=== PATIENT | female | born 1995 | race African-American/Black ===

== ENCOUNTER 2017-01-30 18:14 | Emergency (ER) | payer MEDICAID, OTHER ==
[~2017-01-30] VITALS: Ht 157.5 cm; Wt 53.7 kg
[2017-01-30 23:07] LABS: CLARITY URINE CLOUDY (CLEAR); COLOR URINE YELLOW (YELLOW); GLUCOSE URINE NEGATIVE (NEGATIVE); KETONES URINE 2+ (NEGATIVE); LEUKOCYTE ESTERASE URINE NEGATIVE (NEGATIVE); NITRITE URINE NEGATIVE (NEGATIVE); OCCULT BLOOD URINE NEGATIVE (NEGATIVE); PH URINE 7.5 (4.5-8.0); PROTEIN URINE NEGATIVE (NEGATIVE); SPECIFIC GRAVITY URINE 1.025 (1.005-1.030)
[2017-01-30 23:28] VITALS: BP 106/56
[2017-02-02 04:18] LABS: CHLAMYDIA TRACHOMATIS NAA Negative (Negative); NEISSERIA GONORRHOEAE NAA Negative (Negative)
== END 2017-01-31 00:10 | disposition home or self-care (01) ==
LOC: ER 18:33
DX: N76.0 Acute vaginitis (principal); J02.9 Acute pharyngitis, unspecified
CPT/HCPCS: 81001; 81025; 87210; 87491; 87591; 99284

== ENCOUNTER 2018-09-19 23:45 | Emergency (ER) | payer MEDICAID ==
[~2018-09-19] VITALS: Ht 160 cm; Wt 54.6 kg
[2018-09-20 00:46] VITALS: BP 124/81
[2018-09-20 02:03] LABS: CLARITY URINE CLEAR (CLEAR); COLOR URINE YELLOW (YELLOW); KETONES URINE 2+ (NEGATIVE); LEUKOCYTE ESTERASE URINE NEGATIVE (NEGATIVE); NITRITE URINE NEGATIVE (NEGATIVE); OCCULT BLOOD URINE NEGATIVE (NEGATIVE); PROTEIN URINE NEGATIVE (NEGATIVE); SPECIFIC GRAVITY URINE 1.024 (1.005-1.030)
== END 2018-09-20 03:08 | disposition left against medical advice (07) ==
LOC: ER 23:45
DX: Z53.21 Procedure and treatment not carried out due to patient leaving prior to being seen by health care provider (principal); Z32.01 Encounter for pregnancy test, result positive
CPT/HCPCS: 81025

== ENCOUNTER 2019-02-02 15:20 | Observation (INO) | payer MEDICAID ==
[~2019-02-02] VITALS: Ht 157.5 cm; Wt 68.9 kg
[2019-02-02] MEDS ORDERED: PREN1TAB78 MT (16:16)
== END 2019-02-02 17:30 | disposition home or self-care (01) ==
LOC: 8 EST LDRP 15:20
PROVIDERS: ADMIT Obstetrics & Gynecology; ATTEND Obstetrics & Gynecology
DX: O26.892 Other specified pregnancy related conditions, second trimester (principal); R10.2 Pelvic and perineal pain; Z3A.24 24 weeks gestation of pregnancy
CPT/HCPCS: 76805; 99281; G0378

== ENCOUNTER 2019-03-15 15:57 | Observation (INO) | payer MEDICAID ==
[~2019-03-15 15:57] MED LIST: PREN1TAB78 MT
== END 2019-03-15 19:51 | disposition home or self-care (01) ==
LOC: 8 EST LDRP 15:57
PROVIDERS: ADMIT Obstetrics & Gynecology; ATTEND Obstetrics & Gynecology
DX: O9A.213 Injury, poisoning and certain other consequences of external causes complicating pregnancy, third trimester (principal); R10.30 Lower abdominal pain, unspecified; R10.2 Pelvic and perineal pain; Z3A.30 30 weeks gestation of pregnancy; W18.30XA Fall on same level, unspecified, initial encounter; Y93.89 Activity, other specified; Y92.89 Other specified places as the place of occurrence of the external cause; Y99.9 Unspecified external cause status
CPT/HCPCS: 76805; 99281; G0378

== ENCOUNTER 2019-03-22 13:21 | Observation (INO) | payer MEDICAID ==
[~2019-03-22] VITALS: Ht 162.6 cm; Wt 63.5 kg
[2019-03-22] MEDS ORDERED: LACTATED RINGERS 1,000 ML IV SCH (14:30)
[2019-03-22 14:59] LABS: HEMATOCRIT 36.2 % (36.0-48.0); HEMOGLOBIN 12.2 g/dL (12.0-16.0)
== END 2019-03-22 15:30 | disposition home or self-care (01) ==
LOC: 8 EST LDRP 13:21
PROVIDERS: ADMIT Obstetrics & Gynecology; ATTEND Obstetrics & Gynecology
DX: O26.893 Other specified pregnancy related conditions, third trimester (principal); R55 Syncope and collapse; Z3A.31 31 weeks gestation of pregnancy
CPT/HCPCS: 36415; 85014; 85018; 96360; 99281; G0378

== ENCOUNTER 2019-03-23 11:44 | Observation (INO) | payer MEDICAID ==
[~2019-03-23] VITALS: Ht 162.6 cm; Wt 63.5 kg
[2019-03-23] MEDS ORDERED: LACTATED RINGERS 1,000 ML IV ONE (12:58)
[2019-03-23] MEDS ORDERED: LACTATED RINGERS 1,000 ML IV SCH (13:30)
[2019-03-23] MEDS ORDERED: ACETAMINOPHEN 500MG TABLET PO ONE (13:30)
== END 2019-03-23 14:50 | disposition home or self-care (01) ==
LOC: ER 11:44 → 8 EST A/PP 12:00
PROVIDERS: ADMIT Obstetrics & Gynecology; ATTEND Obstetrics & Gynecology
DX: O26.893 Other specified pregnancy related conditions, third trimester (principal); R42 Dizziness and giddiness; M54.5 Low back pain; O62.9 Abnormality of forces of labor, unspecified; Z3A.31 31 weeks gestation of pregnancy
CPT/HCPCS: 99281; G0378; J7120

== ENCOUNTER 2021-08-09 01:49 | Emergency (ER) | payer MEDICAID ==
[~2021-08-09] VITALS: Ht 162.6 cm; Wt 59.1 kg
[2021-08-09 03:30] LABS: CLARITY URINE CLOUDY (CLEAR); COLOR URINE YELLOW (YELLOW); KETONES URINE NEGATIVE (NEGATIVE); LEUKOCYTE ESTERASE URINE 3+ (NEGATIVE); NITRITE URINE NEGATIVE (NEGATIVE); OCCULT BLOOD URINE TRACE (NEGATIVE); PROTEIN URINE NEGATIVE (NEGATIVE); UROBILINOGEN URINE 0.2 E.U./dL (0.2-1.0)
[2021-08-09] MEDS ORDERED: CEPHALEXIN 250MG CAPSULE PO ONE (04:00)
[2021-08-09] MEDS ORDERED: CEPH500C2 MT (04:26)
[2021-08-09] MEDS ORDERED: METR500T MT (04:26)
[2021-08-09 04:45] VITALS: BP 122/62
[2021-08-10 09:07] LABS: HIV SCREEN 4G Non Reactive (Non Reactive)
[2021-08-12 04:09] LABS: NEISSERIA GONORRHOEAE NAA Negative (Negative)
[2021-08-16 06:10] LABS: HSV 1 & 2 AB IGM <0.91 Ratio (0.00-0.90)
== END 2021-08-09 04:49 | disposition home or self-care (01) ==
LOC: ER 01:49
DX: N76.0 Acute vaginitis (principal); N39.0 Urinary tract infection, site not specified
CPT/HCPCS: 81003; 81025; 86694; 86695; 86696; 87210; 87389; 87491; 87591; 99283

== ENCOUNTER 2022-03-20 00:06 | Emergency (ER) | payer MEDICAID, OTHER ==
[~2022-03-20] VITALS: Ht 160 cm; Wt 57.3 kg
[~2022-03-20 00:06] MED LIST changes: +CEPH500C2 MT; +METR500T MT
[2022-03-20 03:12] LABS: CLARITY URINE CLOUDY (CLEAR); COLOR URINE YELLOW (YELLOW); KETONES URINE TRACE (NEGATIVE); LEUKOCYTE ESTERASE URINE 2+ (NEGATIVE); NITRITE URINE NEGATIVE (NEGATIVE); OCCULT BLOOD URINE 2+ (NEGATIVE); PH URINE 7.5 (4.5-8.0); PROTEIN URINE 2+ (NEGATIVE); SPECIFIC GRAVITY URINE 1.025 (1.005-1.030)
[2022-03-20] MEDS ORDERED: CEPH500C2 MT (03:24)
[2022-03-20] MEDS ORDERED: PHEN-815 MT (03:24)
[2022-03-20 03:33] VITALS: BP 101/60
== END 2022-03-20 03:34 | disposition home or self-care (01) ==
LOC: ER 00:06
DX: R30.0 Dysuria (principal)
CPT/HCPCS: 81003; 81025; 99283

== ENCOUNTER 2022-04-12 13:46 | Emergency (ER) | payer MEDICAID ==
[~2022-04-12] VITALS: Ht 162.6 cm; Wt 57.0 kg
[~2022-04-12 13:46] MED LIST changes: +PHEN-815 MT
[2022-04-12 18:33] VITALS: BP 125/55
== END 2022-04-12 18:34 | disposition home or self-care (01) ==
LOC: ER 13:46
DX: B34.9 Viral infection, unspecified (principal)
CPT/HCPCS: 99281

== ENCOUNTER 2022-09-16 18:09 | Emergency (ER) | payer MEDICAID ==
[~2022-09-16] VITALS: Ht 165.1 cm; Wt 57.0 kg
[2022-09-16 18:22] VITALS: BP 115/72
== END 2022-09-16 19:08 | disposition left against medical advice (07) ==
LOC: ER 18:09
DX: Z53.21 Procedure and treatment not carried out due to patient leaving prior to being seen by health care provider (principal)
CPT/HCPCS: 99281

== ENCOUNTER 2022-09-28 19:42 | Emergency (ER) | payer MEDICAID, OTHER ==
[~2022-09-28] VITALS: Ht 160 cm; Wt 55.0 kg
[2022-09-28 19:51] VITALS: BP 124/64
== END 2022-09-28 21:20 | disposition home or self-care (01) ==
LOC: ER 19:42
DX: R68.89 Other general symptoms and signs (principal)
CPT/HCPCS: 81025; 99282

== ENCOUNTER 2023-01-13 04:52 | Emergency (ER) | payer MEDICAID ==
[~2023-01-13] VITALS: Ht 160 cm; Wt 55.0 kg
[2023-01-13 05:13] VITALS: BP 106/65; PULSE 86; RESP 18; TEMP 98.6; O2SAT 99
== END 2023-01-13 07:21 | disposition home or self-care (01) ==
LOC: ER 04:52
DX: N39.0 Urinary tract infection, site not specified (principal); B34.9 Viral infection, unspecified
CPT/HCPCS: 99281